=== PATIENT | female | born 1965 | race Caucasian/White ===

== ENCOUNTER 2017-06-03 23:29 | Emergency (ER) | payer MEDICAID, OTHER ==
[~2017-06-03] VITALS: Ht 162.6 cm; Wt 103.5 kg
[~2017-06-03 23:29] MED LIST: CIPR500T4 PO; FAMO-96 PO
[2017-06-03 23:33] VITALS: Ht 162.6 cm; Wt 103.5 kg
[2017-06-04] MEDS ORDERED: IPRATROPIUM (NEB) 0.5 MG/2.5 ML AMP INH STA (00:37)
[2017-06-04] MEDS ORDERED: ALBUTEROL 0.083% (NEB) 2.5 MG/3 ML AMP INH STA (00:37)
--- NOTE | 2017-06-04 01:00 | RADRPT ---
PROCEDURE: XR Chest. CLINICAL INDICATION: Shortness of breath. TECHNIQUE: Portable AP upright view of the chest was obtained. COMPARISON: 01/29/2016 FINDINGS: The cardiomediastinal silhouette is within normal limits. The lungs are clear. There is no evidenc e for pleural effusion, pneumothorax or pulmonary vascular congestion. The osseous structures are i ntact with no evidence for acute abnormality. RPTAT:HJJR IMPRESSION: No evidence for acute intrathoracic pathology. Physician Vanda Date Time Electronically viewed and signed by Physician Vanda on 06/04/2017 01:00 /
[2017-06-04 01:20] LABS: BASOPHILS % 0.4 % (0.0-2.0); EOSINOPHILS # 0.5 10^3/ul (0.0-0.5); EOSINOPHILS % 4.6 % (0.0-7.0); HEMATOCRIT 35.1 % (37.0-47.0); HEMOGLOBIN 10.9 g/dl (12.0-16.0); LYMPHOCYTES # 2.3 10^3/ul (0.8-2.9); LYMPHOCYTES % 19.9 % (15.0-51.0); MEAN CORPUSCULAR HEMOGLOBIN 26.3 pg (29.0-33.0); MEAN CORPUSCULAR HGB CONC 31.1 g/dl (32.0-37.0); MEAN CORPUSCULAR VOLUME 84.8 fl (82.0-101.0); MONOCYTE # 0.9 10^3/ul (0.3-0.9); MONOCYTES % 8.1 % (0.0-11.0); NEUTROPHIL # 7.5 10^3/ul (1.6-7.5); NEUTROPHILS % 66.6 % (39.0-77.0); PLATELET COUNT 238 10^3/UL (140-415); RED BLOOD COUNT 4.14 10^6/ul (4.20-5.40); RED CELL DISTRIBUTION WIDTH 16.2 % (11.5-14.5); WHITE BLOOD COUNT 11.3 10^3/ul (4.8-10.8)
[2017-06-04 01:36] LABS: INR 0.98
[2017-06-04 01:37] LABS: PARTIAL THROMBOPLASTIN TIME 28.6 Sec (25.0-35.0)
[2017-06-04 01:48] LABS: ALANINE AMINOTRANSFERASE 33 IU/L (13-69); ALBUMIN/GLOBULIN RATIO 0.97; ALKALINE PHOSPHATASE 115 IU/L (42-121); ANION GAP 13 (8-16); ASPARTATE AMINO TRANSFERASE 18 IU/L (15-46); BILIRUBIN,INDIRECT 0.2 mg/dl (0-1.1); BILIRUBIN,TOTAL 0.2 mg/dl (0.2-1.3); BLOOD UREA NITROGEN 13 mg/dl (7-20); CALCIUM 9.2 mg/dl (8.4-10.2); CARBON DIOXIDE 26 mmol/L (21-31); CHLORIDE 104 mmol/L (97-110); GLUCOSE 112 mg/dl (70-220); POTASSIUM 3.5 mmol/L (3.5-5.1); SODIUM 139 mmol/L (135-144); TOTAL PROTEIN 8.1 g/dl (6.1-8.1)
[2017-06-04 01:59] LABS: B-TYPE NATRIURETIC PEPTIDE 89 PG/ML (0-125)
[2017-06-04 02:05] LABS: TROPONIN-I < 0.012 ng/ml (0.00-0.12)
[2017-06-04] MEDS ORDERED: hydrALAzine 20 MG INJ IV ONE (02:30)
[2017-06-04] MEDS ORDERED: CYAN500T46 PO (03:10)
[2017-06-04] MEDS ORDERED: GUAI-637 PO (03:10)
[2017-06-04] MEDS ORDERED: ACET-141 PO (03:10)
[2017-06-04] MEDS ORDERED: ASCO500C7 PO (03:10)
--- NOTE | 2017-06-04 03:34 | ERD ---
ER Documentation Chief Complaint Date/Time DATE: 06/04/17 TIME: 03:33 Chief Complaint cough for 4 days HPI This is a 51-year-old female comes in with a cough for 4 days. Because of mildly productive of greenish sputum for the patient. No nausea no vomiting no chills. No sick contacts. No other current complaints. ROS All systems reviewed and are negative except as per history of present illness. Medications Home Meds Reported Medications Acetaminophen* (Acetaminophen*) 500 MG Extra Strength Tablet, 500 MG PO Q4H Y for PAIN AND OR ELEVATED TEMP, TAB 06/04/17 Cyanocobalamin* (Vitamin B12*) 500 Mcg Tab, 1000 MCG PO DAILY, TAB 06/04/17 Guaifenesin* (Robitussin*) 100 Mg/5 Ml Syrup, 100 MG PO Q4H Y for COUGH, ML 06/04/17 Ascorbic Acid* (Vitamin C*) 500 Mg Capsule.sa, 500 MG PO DAILY, CAP 06/04/17 Discontinued Scripts Famotidine* (Pepcid*) 20 Mg Tablet, 20 MG PO BID for 4 Days, #30 TAB Prov:TONIA PARK PA-C 08/10/16 Ciprofloxacin Hcl* (Ciprofloxacin Hcl*) 500 Mg Tablet, 500 MG PO BID for 7 Days , TAB Prov:TONIA PARK PA-C 08/10/16 Allergies Allergies: Coded Allergies: No Known Drug Allergy (Unverified Allergy, Mild, 06/04/17) PMhx/Soc History of Surgery: Yes (C SECTION) Anesthesia Reaction: No Hx Neurological Disorder: No Hx Respiratory Disorders: No 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 Neck: Full range of motion..~ No meningismus. Resp: Clear to auscultation bilaterally Cardio: Regular rate and rhythm, no murmurs Abd: Soft, non tender, non distended. Normal bowel sounds Skin: No petechiae or rashes Back: No midline or flank tenderness Ext: No cyanosis, or edema Neur: Awake and alert Psych: Normal Mood and Affect Result Diagram: 06/04/1710806/04/17108 Results 24 hrs Laboratory Tests Test 06/04/17 01:09 White Blood Count 11.310^3/ul Red Blood Count 4.1410^6/ul Hemoglobin 10.9g/dl Hematocrit 35.1% Mean Corpuscular Volume 84.8fl Mean Corpuscular Hemoglobin 26.3pg Mean Corpuscular Hemoglobin Concent 31.1g/dl Red Cell Distribution Width 16.2% Platelet Count 26749^3/UL Mean Platelet Volume 10.0fl Neutrophils % 66.6% Lymphocytes % 19.9% Monocytes % 8.1% Eosinophils % 4.6% Basophils % 0.4% Nucleated Red Blood Cells % 0.0/100WBC Neutrophils # 7.510^3/ul Lymphocytes # 2.310^3/ul Monocytes # 0.910^3/ul Eosinophils # 0.510^3/ul Basophils # 0.010^3/ul Nucleated Red Blood Cells # 0.010^3/ul Prothrombin Time 13.0Sec Prothrombin Time Ratio 1.0 INR International Normalized Ratio 0.98 Activated Partial Thromboplast Time 28.6Sec Sodium Level 139mmol/L Potassium Level 3.5mmol/L Chloride Level 104mmol/L Carbon Dioxide Level 26mmol/L Anion Gap 13 Blood Urea Nitrogen 13mg/dl Creatinine 0.60mg/dl Glucose Level 112mg/dl Calcium Level 9.2mg/dl Total Bilirubin 0.2mg/dl Direct Bilirubin 0.00mg/dl Indirect Bilirubin 0.2mg/dl Aspartate Amino Transf (AST/SGOT) 18IU/L Alanine Aminotransferase (ALT/SGPT) 33IU/L Alkaline Phosphatase 115IU/L Troponin I < 0.012ng/ml B-Type Natriuretic Peptide 89PG/ML Total Protein 8.1g/dl Albumin 4.0g/dl Globulin 4.10g/dl Albumin/Globulin Ratio 0.97 Current Medications Medications (Trade) Dose Ordered Sig/Yamileth Route PRN Reason Start Time Stop Time Status Last Admin Dose Admin Albuterol (Proventil 0.083% (Neb)) 5 mg ONCE STAT INH 06/04/17 00:37 06/04/17 00:38 DC 06/04/17 01:19 Ipratropium Marshall (Atrovent 0.02% (Neb)) 0.5 mg ONCE STAT INH 06/04/17 00:37 06/04/17 00:38 DC 06/04/17 01:19 Hydralazine HCl (Apresoline) 20 mg ONCE ONCE IV 06/04/17 02:30 06/04/17 02:31 DC 06/04/17 02:22 Procedures/MDM EKG: Rate/Rhythm: [Normal Sinus Rhythm] QRS, ST, T-waves: [No changes consistent w/ acute ischemia] Impression: [No evidence of ischemia or arrhythmia] Chest X-ray 1V Interpreted by me: Soft Tissue: No acute abnormalities Bones: No acute abnormalities Mediastinum/Cardiac Silhouette/Lungs: [No acute abnormalities] Patient's respiratory status has stabilized while in the department and is appropriate for outpatient work up. Exam and work up not consistent w/ impending respiratory failure or cardiovascular collapse. This was bronchitis. Patient discharged home with azithromycin, prednisone, albuterol. Follow-up with PCP. Return for worsening symptoms. Departure Diagnosis: Primary Impression: Bronchitis Condition: Stable AJAY MARCUS Jun 04, 2017 03:34
[2017-06-04] MEDS ORDERED: AZIT250T94 PO (03:35)
[2017-06-04] MEDS ORDERED: ALBU18HF INHALATION (03:35)
[2017-06-04] MEDS ORDERED: PRED20TA PO (03:35)
[2017-06-04 04:00] VITALS: BP 148/81; PULSE 98; RESP 18
== END 2017-06-04 04:20 | disposition home or self-care (01) ==
LOC: E/R 23:29
DX: J20.9 Acute bronchitis, unspecified (principal); R06.02 Shortness of breath; R40.2142 Coma scale, eyes open, spontaneous, at arrival to emergency department; R40.2252 Coma scale, best verbal response, oriented, at arrival to emergency department; R40.2362 Coma scale, best motor response, obeys commands, at arrival to emergency department
CPT/HCPCS: 36415; 71010; 80053; 83880; 84484; 85025; 85610; 85730; 93005; 94664; 96374; J0360; Z7502; Z7610